=== PATIENT | female | born 2005 | race Caucasian/White ===

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

== ENCOUNTER 2023-10-28 08:17 | Emergency (ER) | payer MEDICAID, SELFPAY ==
[2023-10-28 09:20] VITALS: BP 117/70; PULSE 57; RESP 22; TEMP 36.9; O2SAT 100; BMI 34.2
--- NOTE | 2023-10-28 09:32 | ED_ITS ---
Discharge Plan Disposition Patient Disposition: Home, Self-Care Condition: Good Prescriptions Prescriptions: New ibuprofen 600 mg tablet 600 mg PO Q6HP PRN (Reason: Moderate Pain) Qty: 20 0RF No Action norgestimate-ethinyl estradiol [Sprintec (28)] 0.25-35 mg-mcg tablet 1 tab PO DAILY Qty: 84 1RF Referrals Follow up/Referrals: Kavita Herrmann PA [Primary Care Provider] - See instructions Activity Restrictions/Add. Instructions Additional Instructions/Restrictions: Wear wrist splint this may keep you from moving and turning of your wrist to help with pain Follow up with your Family Doctor as prescribed Take medication as prescribed Return if needed Clinical Impressions Clinical Impression: Carpal tunnel syndrome Qualifiers: Laterality: right Qualified Code(s): G56.01 - Carpal tunnel syndrome, right upper limb Stand Alone Forms Stand Alone Forms: Work/School Release Instructions Patient Instructions: Carpal Tunnel Syndrome, DI for Carpal Tunnel Syndrome, Ibuprofen Discharge ED Provider: Lauren Crow [facility] General Stated complaint: pain in both hands Mode of Arrival: Ambulatory Source of Information: Patient Limitations: No Limitations Time Seen by Provider: 10/28/23 09:32 Description of Symptoms (Recalled from Triage Doc. 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 States that she did not fall and did not do anything to hurt it Denies falling and denies known injury States she called to get into her PCP and has appointment next week but work needed something to get her moved from her dept until she sees her PCP Related Data Previous Rx's Medication Instructions Recorded norgestimate 0.25 mg-ethinyl 1 tab PO DAILY #84 tabs 07/13/23 estradiol 35 mcg tablet (Sprintec (28)) ibuprofen 600 mg tablet 600 mg PO Q6HP PRN Moderate Pain 10/28/23 #20 tabs Allergies Allergy/AdvReac Type Severity Reaction Status Date / Time poison isabel extract Allergy Verified 09/14/22 10:14 Worker's Comp Is this a Worker's Comp case?: No [facility] Disclaimer: The information contained in this section may have been updated after the patient was seen, as this information can be updated by other users. Social History Smoking Status: Never smoker alcohol intake: never substance use type: denies use current occupational status: student Travel in the last 8 weeks: None household members: family housing: house ROS Obtained: Yes All systems reviewed & no additional complaints except as documented and Yes Systems reviewed as appropriate & no additional complaints except as documented Constitutional Constitutional: Reports system reviewed and no additional complaints, except as documented and Reports as per HPI Cardiovascular Cardiovascular: Reports system reviewed and no additional complaints, except as documented and Reports as per HPI Respiratory Respiratory: Reports system reviewed and no additional complaints, except as documented and Reports as per HPI Gastrointestinal Gastrointestingal: Reports system reviewed and no additional complaints, except as documented and as per HPI Musculoskeletal Musculoskeletal: Reports system reviewed and no additional complaints, except as documented, Reports as per HPI and Reports other Comments: Pain in the palm of 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 Denied known injury Reports been going on for awhile just worse over last couple of days) Neurological Exam Neurological exam: Present alert, oriented X3 and normal gait Medical Decision Making Elder Inquiry Pt receiving controlled substance: No Elder was queried for this patient: No Vital Signs: 10/28/23 09:20 Temperature 98.5 F Temperature Source Oral Pulse Rate [Right Brachial] 57 L Respiratory Rate 22 Blood Pressure [Right Arm] 117/70 Blood Pressure Mean [Right Arm] 85 Blood Pressure Source [Right Arm] Automatic Cuff Blood Pressure Position [Right Arm] Sitting 02 Sat by Pulse Oximetry 100 Oxygen Delivery Method Room Air Medical Decision Narrative: Discussed xray patient declined suspect Carpal Tunnel due to symptoms and location of pain will place in velcro wrist splint prescribe Ibuprofen for pain and she will follow up with her PCP for further evaluation and testing if needed 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
[2023-10-28 09:54] VITALS: BP 117/70; PULSE 57; RESP 22; TEMP 36.9; O2SAT 100
== END 2023-10-28 10:02 | disposition home or self-care (01) ==
PROVIDERS: Emergency Provider Nurse Practitioner; PCP Physician Assistant
DX: M79.641 Pain in right hand (principal); G56.01 Carpal tunnel syndrome, right upper limb
CPT/HCPCS: 99212; 99214; G0463

== ENCOUNTER 2024-03-28 10:45 | Emergency (ER) | payer BC, MEDICAID, SELFPAY ==
[2024-03-28 10:50] VITALS: BP 124/80; PULSE 66; RESP 19; TEMP 36.7; O2SAT 100; BMI 35.2
--- NOTE | 2024-03-28 11:11 | EXP.UTC ---
Discharge Plan Disposition Patient Disposition: Home, Self-Care Condition: Good Prescriptions Prescriptions: New diphenhydramine HCl 25 mg capsule 25 mg PO Q6HP PRN (Reason: Itching) Qty: 30 0RF methylprednisolone 4 mg Tablets,Dose Pack 4 mg PO DIRECTED 6 Days Qty: 21 0RF Rx Instructions: Take 1 pack as directed for 6 days No Action norgestimate-ethinyl estradiol [Sprintec (28)] 0.25-35 mg-mcg tablet 1 tab PO DAILY Qty: 84 3RF Referrals Follow up/Referrals: Kavita Herrmann PA [Primary Care Provider] - See instructions Activity Restrictions/Add. Instructions Additional Instructions/Restrictions: Try to identify and avoid contact with the offending substance. Don't start the oral steroids until tomorrow. The diphenhydramine (benedryl) will make you drowsy, so don't drive or operate heavy machinery after taking it. Follow up with your regular doctor. GO TO THE ER FOR ANY WORSENING SYMPTOMS OR CONCERNS Clinical Impressions Clinical Impression: Allergic reaction Instructions Patient Instructions: DI for General Allergic Reactions, Diphenhydramine, Methylprednisolone Injection Discharge ED Provider: Duc Reece [facility] General Stated complaint: swollen and itchy face, left ear pain Mode of Arrival: Ambulatory Source of Information: Patient Limitations: No Limitations Time Seen by Provider: 03/28/24 11:09 Description of Symptoms (Recalled from Triage Doc. by RN): PATIENT C/O PUFFY EYES, ITCHY FACE, AND LEFT EAR PAIN THAT STARTED YESTERDAY HEENT Symptoms (Recalled from RN notes): Yes Resp Symptoms (Recalled from RN notes): No Skin Symptoms (Recalled from RN notes): Yes MS Symptoms (Recalled from RN notes): No Functional Status (Recalled from RN notes): WNL History of Present Illness Provider Complaint: She states that she woke up this morning with facial swelling and lip swelling. She denies any throat swelling or swelling inside mouth. Related Data Previous Rx's Medication Instructions Recorded norgestimate 0.25 mg-ethinyl 1 tab PO DAILY #84 tabs 03/13/24 estradiol 35 mcg tablet (Sprintec (28)) diphenhydramine HCl 25 mg capsule 25 mg PO Q6HP PRN Itching #30 caps 03/28/24 methylprednisolone 4 mg tablets in 4 mg PO DIRECTED 6 days #21 tabs 03/28/24 a dose pack Allergies Allergy/AdvReac Type Severity Reaction Status Date / Time poison isabel extract Allergy Verified 03/13/24 13:09 Worker's Comp Is this a Worker's Comp case?: No [facility] Disclaimer: The information contained in this section may have been updated after the patient was seen, as this information can be updated by other users. Medical History (Updated 03/28/24 @ 11:42 by Duc Reece APRN) Carpal tunnel syndrome Surgical History (Updated 03/13/24 @ 13:09 by PAPA Kuo) No significant past surgical history Family History Other No significant family history Social History Smoking Status: Never smoker alcohol intake: never substance use type: denies use current occupational status: student Travel in the last 8 weeks: None household members: family housing: house ROS Obtained: Yes All systems reviewed & no additional complaints except as documented Constitutional Constitutional: Denies chills and Denies fever(s) Eyes Eyes: Denies eye discharge ENT Ears, Nose, Mouth, and Throat: Denies dizziness, Denies otalgia and Denies sore throat Cardiovascular Cardiovascular: Denies chest pain Respiratory Respiratory: Denies shortness of breath, Denies chest congestion, Denies cough, Denies stridor and Denies wheezing Gastrointestinal Gastrointestingal: Denies nausea or vomiting Musculoskeletal Musculoskeletal: Reports system reviewed and no additional complaints, except as documented and Denies arthralgias Integumentary/Breasts Skin/Breast: Reports as per HPI Neurologic Neurologic: Denies dizziness and Denies paresthesias Allergic/Immunologic Allergic/Immunologic: Denies wheezing Physical Exam General General appearance: alert and in no apparent distress Head Head exam: atraumatic, normocephalic and normal inspection Eye Eye exam: Present normal appearance, PERRL and EOMI ENT ENT exam: Present normal exam, normal oropharynx, mucous membranes moist, TM's normal bilaterally and normal external ear exam Neck Neck exam: Present normal inspection, full ROM and trachea midline; Absent meningismus or lymphadenopathy Chest Chest inspection: Present normal inspection and symmetric chest wall rise; Absent tenderness Respiratory Respiratory exam: Present normal lung sounds bilaterally; Absent respiratory distress Cardiovascular Cardiovascular exam: Present regular rate and normal rhythm; Absent JVD Abdominal Exam Abdominal exam: Present soft and normal bowel sounds; Absent distention, tenderness or guarding Extremities Exam Extremities exam: Present normal inspection, full ROM and normal capillary refill; Absent calf tenderness Back Exam Back exam: Present normal inspection; Absent tenderness Neurological Exam Neurological exam: Present alert and oriented X3 Psychiatric Psychiatric exam: Present normal affect and normal mood Skin Skin exam: Present warm, dry, intact and normal color Lymphatic Lymphatic Findings: no adenopathy Medical Decision Making Medical Records Medical records reviewed: No I reviewed the patient's medical records. Elder Inquiry Pt receiving controlled substance: No Vital Signs: 03/28/24 10:50 Temperature 98.0 F Temperature Source Oral Pulse Rate [Left Brachial] 66 Respiratory Rate 19 Blood Pressure [Left Arm] 124/80 Blood Pressure Mean [Left Arm] 94 Blood Pressure Source [Left Arm] Automatic Cuff Blood Pressure Position [Left Arm] Sitting 02 Sat by Pulse Oximetry 100 Oxygen Delivery Method Room Air
[2024-03-28] MEDS: METHYLPREDNISOLONE SOD SUCC 125MG VIAL 125 MG IM (11:22)
[2024-03-28 11:35] VITALS: BP 124/80; PULSE 66; RESP 19; TEMP 36.7; O2SAT 100
== END 2024-03-28 11:44 | disposition home or self-care (01) ==
PROVIDERS: Emergency Provider Nurse Practitioner Family; PCP Physician Assistant
DX: T78.40XA Allergy, unspecified, initial encounter (principal)
CPT/HCPCS: 96372; 99212; 99214; G0463; J2919

== ENCOUNTER 2024-10-09 19:53 | Emergency (ER) | payer BC, MEDICAID, SELFPAY ==
[2024-10-09] VITALS (11 sets, daily range): BP systolic 114–135; BP diastolic 60–88; PULSE 57–74; RESP 14–16; TEMP 36.7–36.8; O2SAT 93–100; BMI 30.7
--- NOTE | 2024-10-09 20:23 | CT_ITS ---
PROCEDURE INFORMATION: Exam: CT Abdomen And Pelvis With Contrast Exam date and time: 10/09/2024 10:07 PM Age: 19 years old Clinical indication: Abdominal pain; Additional info: Mid abdominal pain TECHNIQUE: Imaging protocol: Computed tomography of the abdomen and pelvis with contrast. Radiation optimization: All CT scans at this facility use at least one of these dose optimization techniques: automated exposure control; mA and/or kV adjustment per patient size (includes targeted exams where dose is matched to clinical indication); or iterative reconstruction. Contrast material: ISOVUE; Contrast volume: 75 ml; Contrast route: IV; COMPARISON: CT ABDOMEN PELVIS WO CON 04/27/2019 12:01 PM FINDINGS: Liver: Heterogeneous liver with mild periportal edema. No mass. Gallbladder and biliary ducts: Normal. No calcified stones. No ductal dilation. Pancreas: Normal. No ductal dilation. Spleen: Normal. No splenomegaly. Adrenal glands: Normal. No mass. Kidneys and ureters: Normal. No hydronephrosis. Stomach and bowel: Unremarkable. No obstruction. No mucosal thickening. Appendix: No evidence of appendicitis. Intraperitoneal space: Unremarkable. No free air. No significant fluid collection. Vasculature: Unremarkable. No abdominal aortic aneurysm. Lymph nodes: Reactive retroperitoneal lymph nodes without lymphadenopathy. Urinary bladder: Unremarkable as visualized. Reproductive: Unremarkable as visualized. Bones/joints: Unremarkable. No acute fracture. Soft tissues: Unremarkable. IMPRESSION: Heterogeneous liver with periportal edema. Although nonspecific, can be seen with hepatitis and/or hepatic congestion among leading differential considerations.
--- NOTE | 2024-10-09 20:24 | ED_ITS ---
Discharge Plan Disposition Patient Disposition: Home, Self-Care Prescriptions Prescriptions: New ondansetron 4 mg tablet,disintegrating 4 mg PO Q6H PRN (Reason: nausea and vomiting) 5 Days Qty: 20 0RF Referrals Follow up/Referrals: Kavita Herrmann PA [Primary Care Provider] - See instructions Jama Pepe II, MD [Staff Physician] - See instructions Activity Restrictions/Add. Instructions Additional Instructions/Restrictions: No definitive cause of your abdominal pain identified today. You had some mild elevation in your transaminases and your CT scan did show some findings concerning for possible mild inflammation of the liver itself. Therefore recommend that you follow-up with our raised printer Dr. Pepe to ensure resolution of your symptoms. Please return with any significant worsening. Clinical Impressions Clinical Impression: Abdominal pain, Abnormal transaminases Instructions Patient Instructions: DI for Acute Abdominal Pain Print Language Print Language: Portuguese Discharge ED Provider: Li Mao General Adult HPI General Chief complaint: Abdominal Pain Stated complaint: Stomach pain Time Seen by Provider: 10/09/24 20:16 Mode of Arrival: Ambulatory Source of Information: Patient Limitations: No Limitations Description of Symptoms (Recalled from ER Triage Doc. by RN): Pt reports BUQ abd pain that comes and goes and radiates into her flanks. She endorses dizziness, lightheadedness, and chills during these episodes. Pt denies changes in bowels, no urinary issues. [facility] was beginning of Sep. Denies N/V or fevers. History of Present Illness HPI narrative: Patient is a 19-year-old female presents today with epigastric and periumbilical abdominal pain. Started about an hour prior to arrival. States it has been coming and going in terms of its intensity but has not completely alleviated at any point. She has not had any postprandial abdominal pain no history of cholecystectomy or other abdominal surgeries in the past denies any nausea and vomiting. Denies any changes in urination bowel movements or vaginal bleeding etc. Related Data Previous Rx's ?Medication ?Instructions ?Recorded ondansetron 4 mg disintegrating 4 mg PO Q6H PRN nausea and 10/09/24 tablet vomiting 5 days #20 tabs Allergies Allergy/AdvReac Type Severity Reaction Status Date / Time poison isabel extract Allergy Verified 09/25/24 11:04 [facility] Disclaimer: The information contained in this section may have been updated after the patient was seen, as this information can be updated by other users. Medical History Carpal tunnel syndrome Surgical History No significant past surgical history Family History Other No significant family history Social History Smoking Status: Never smoker alcohol intake: never substance use type: denies use current occupational status: student Travel in the last 8 weeks: None household members: family housing: house Have you lived/traveled outside [place] in past 30 days?: No Contact w/someone who lives/traveled outside [place] past 30 days?: No Exposure to someone with infectious disease in past 14 days?: No Do you have a fever (greater than 100.4 F or 38 C)?: No Have you tested positive for COVID-19: No Exposed to someone with COVID-19 in past 14 days?: No Do you have a sore throat?: No Do you have a cough?: No Do you have any weakness?: No Do you have any diarrhea?: No Are you experiencing any unusual bleeding?: No Do you have any muscle aches/pain?: No Do you have any abdominal pain?: Yes Are you experiencing loss of taste or smell?: No Other Medical History Have you received the Flu Vaccine for this season: No Have you received the Pneumonia Vaccine: No ROS Obtained: Yes All systems reviewed & no additional complaints except as documented Physical Exam General General appearance: alert Respiratory Respiratory exam: Present normal lung sounds bilaterally Cardiovascular Cardiovascular exam: Present regular rate Abdominal Exam Abdominal exam: Present tenderness (Patient tender mid epigastric region and periumbilically no rebound or guarding) Neurological Exam Neurological exam: Present alert and oriented X3 Medical Decision Making Medical Records Screening: Per USPSTF and CDC recommendations, given the prevalence of disease in our region, it is our hospital?s policy to screen for HIV and viral Hepatitis for all patients aged 18 and over and those with ongoing risk factors. Elder Inquiry Pt receiving controlled substance: No Vital Signs: 10/09/24 19:54 10/09/24 21:00 10/09/24 21:15 Temperature 98.3 F Temperature Source Oral Pulse Rate 72 70 Pulse Rate [Right Radial] 73 Respiratory Rate 14 Blood Pressure 135/80 114/69 Blood Pressure [Right Arm] 120/77 Blood Pressure Mean [Right Arm] 91 Blood Pressure Source [Right Arm] Automatic Cuff Blood Pressure Position [Right Arm] Sitting 02 Sat by Pulse Oximetry 100 100 93 L Oxygen Delivery Method Room Air 10/09/24 21:32 10/09/24 21:45 10/09/24 22:00 Temperature Temperature Source Pulse Rate 63 69 67 Pulse Rate [Right Radial] Respiratory Rate Blood Pressure 118/60 121/68 124/73 Blood Pressure [Right Arm] Blood Pressure Mean [Right Arm] Blood Pressure Source [Right Arm] Blood Pressure Position [Right Arm] 02 Sat by Pulse Oximetry 99 99 99 Oxygen Delivery Method Room Air Room Air Room Air 10/09/24 22:17 10/09/24 22:30 10/09/24 22:45 Temperature Temperature Source Pulse Rate 74 67 63 Pulse Rate [Right Radial] Respiratory Rate Blood Pressure 120/74 124/88 133/82 Blood Pressure [Right Arm] Blood Pressure Mean [Right Arm] Blood Pressure Source [Right Arm] Blood Pressure Position [Right Arm] 02 Sat by Pulse Oximetry 100 99 98 Oxygen Delivery Method Room Air Room Air Room Air 10/09/24 23:00 Temperature Temperature Source Pulse Rate 64 Pulse Rate [Right Radial] Respiratory Rate Blood Pressure 128/81 Blood Pressure [Right Arm] Blood Pressure Mean [Right Arm] Blood Pressure Source [Right Arm] Blood Pressure Position [Right Arm] 02 Sat by Pulse Oximetry 97 Oxygen Delivery Method Room Air Lab Data Lab results reviewed: Yes I reviewed the patient's lab results. Lab Results 10/09/24 20:53: WBC 16.5 H, RBC 5.05, Hgb 14.0, Hct 42.3, MCV 83.8, MCH 27.7, MCHC 33.1, RDW 13.0, Plt Count 216, MPV 11.4 H, Neut % (Auto) 84.6 H, Lymph % (Auto) 8.6 L, [place] % (Auto) 5.6, Eos % (Auto) 0.5, Baso % (Auto) 0.3, Neut # (Auto) 13.9 H, Lymph # (Auto) 1.4, [place] # (Auto) 0.9, Eos # (Auto) 0.1, Baso # (Auto) 0.1, Total Counted 100, Neutrophils % (Manual) 85 H, Lymphocytes % (Manual) 7 L, Monocytes % (Manual) 8, Platelet Estimate Normal, RBC Morphology Normal, Sodium 139, Potassium 3.4 L, Chloride 103, Carbon Dioxide 24, Anion Gap 15.4 H, BUN 15, Creatinine 0.70, Estimated Creat Clear 173, Estimated GFR 106, Est GFR ( Amer) 128, Glucose 118 H, Calcium 9.7, Total Bilirubin 0.8, AST 127 H, ALT 81 H, Alkaline Phosphatase 104, Total Protein 7.8, Albumin 5.3 H, Globulin 2.5, Albumin/Globulin Ratio 2.1 H, Lipase 63, Serum HCG, Qual Negative, HCV Ab CARLOS w/Rflx PCR Qn Negative, HIV Ag/Ab Combo Qual Negative 10/09/24 21:27: Urine Color [place], Urine Appearance Sl cloudy, Urine pH 6.0, Ur Specific [place] >= 1.030, Urine Protein Negative, Urine Glucose (UA) Negative, Urine Ketones Negative, Urine Blood Negative, Urine Nitrate Negative, Urine Bilirubin Negative, Urine Urobilinogen 0.2, Ur Leukocyte Esterase Negative, Urine RBC 3-5, Urine WBC 3-5, Ur Squamous Epith Cells 3-5, Urine Bacteria 1+, Urine Mucus 1+, Urine HCG, Qual Negative 10/09/24 20:53 10/09/24 20:53 Orders (Tests/Meds): ED MEDICATIONS Generic Name Dose Route Start Last Admin Trade Name Freq PRN Reason Stop Dose Admin Sodium Chloride 10 ml 10/09/24 22:10 10/09/24 22:10 Sodium Chloride 0.9% 10ml Syr (Rad Only) IV 11/08/24 22:09 10 ml NEEDED PRN Administration Maintain IV Site Discontinued Medications Generic Name Dose Route Start Last Admin Trade Name Freq PRN Reason Stop Dose Admin Lactated Ringer's 1,000 mls @ 999 mls/hr 10/09/24 20:30 10/09/24 21:07 Lactated Ringer's 1000 Ml Bag IV 10/09/24 21:30 999 mls/hr .Q1H1M FARHAT Administration Iopamidol 75 ml 10/09/24 22:10 10/09/24 22:10 Iopamidol-370 (76%);100ml Bottle IV 10/09/24 22:11 75 ml ONCE ONE Administration Morphine Sulfate 4 mg 10/09/24 20:23 10/09/24 21:07 Morphine 4mg/Ml Syringe IV 10/09/24 20:24 4 mg ONCE ONE Administration Ondansetron HCl 4 mg 10/09/24 20:23 10/09/24 21:07 Ondansetron 4mg/2ml Vial IV 10/09/24 20:24 4 mg ONCE ONE Administration ORDERS Category Date Time Status CT abdomen pelvis w con Stat Cat Scan 10/09/24 20:23 Completed CBC w/Auto Diff [Complete Blood Count Auto Diff] Stat Lab 10/09/24 20:53 Completed CMP [Comprehensive Metabolic Panel] Stat Lab 10/09/24 20:53 Completed HCG Qualitative, Serum Stat Lab 10/09/24 20:53 Completed HIV Combo Stat Lab 10/09/24 20:53 Completed Hepatitis C Ab Qual. W/ RFX Stat Lab 10/09/24 20:53 Completed Lipase Stat Lab 10/09/24 20:53 Completed Urinalysis and Microscopic Stat Lab 10/09/24 21:27 Completed Urine , HCG Qual. Stat Lab 10/09/24 21:27 Completed Medical Decision Narrative: 19-year-old female with above history and physical. Her abdomen is soft but she is significantly tender in the mid periumbilical and epigastric region. Therefore we will get a CT scan to evaluate surgical pathology such as bowel obstruction etc. IV fluids pain medicine nausea medicine have been administered basic blood work have been initiated and will reassess. Reassessment 11:25 PM patient feeling much better serial abdominal exams are benign. CT scan was performed which I personally interpreted there is some questionable edema around the liver itself concerning for possible inflammatory response but no definitive abnormality. Specifically no evidence of epigastric or mid periumbilical abnormalities explain the patient's pain. Patient did have mild elevations in her transaminases. No significant right upper quadrant tenderness. This is nonspecific. She has been advised to follow-up closely outpatient with gastroenterology and return with any significant worsening of her symptoms. Critical Care Critical Care Time Critical Care Time: No
[2024-10-09] MEDS: MORPHINE 4MG/ML SYRINGE 4 MG IV (21:07)
[2024-10-09] MEDS: ONDANSETRON 4MG/2ML VIAL 4 MG IV (21:07)
[2024-10-09] MEDS: LACTATED RINGERS 1000ML 1,000 ML 999 ML IV (21:07)
[2024-10-09 21:11] LABS: Albumin Level 5.3 g/dl (3.5-5.0); Chloride 103 mmol/L (98-107)
[2024-10-09 21:12] LABS: Potassium 3.4 mmoL/L (3.5-5.1); Sodium 139 mmol/L (136-145)
[2024-10-09 21:13] LABS: Basophils # 0.1 K/mm3 (0-0.2); Basophils % 0.3 % (0.1-2.0); Eosinophils # 0.1 K/mm3 (0.0-0.4); Eosinophils % 0.5 % (0.1-12.0); Hematocrit 42.3 % (37.0-47.0); Lymphocytes # 1.4 K/mm3 (0.7-4.5); Lymphocytes % 8.6 % (10-50); Mean Corpuscular HGB Conc 33.1 g/dL (31.8-35.4); Mean Corpuscular Hemoglobin 27.7 pg (27.0-31.2); Mean Corpuscular Volume 83.8 fl (81-99); Mean Platelet Volume 11.4 fl (7.4-10.4); Monocytes # 0.9 K/mm3 (0.1-1.0); Monocytes % 5.6 % (1.7-9.3); Neutrophils # 13.9 K/mm3 (1.8-7.8); Neutrophils % 84.6 % (37.0-80.0); Platelet Count 216 K/mm3 (142-424); Red Blood Count 5.05 M/mm3 (4.20-5.40); White Blood Count 16.5 K/mm3 (4.8-10.8)
[2024-10-09 21:14] LABS: Alanine Aminotransferase 81 U/L (12-78); Alkaline Phosphatase 104 U/L (38-126); Anion Gap 15.4 mEq/L (5-15); Aspartate Amino Transferase 127 U/L (14-36); Bilirubin,Total 0.8 mg/dl (0.2-1.3); Blood Urea Nitrogen 15 mg/dl (7-17); Carbon Dioxide 24 mmol/L (22.0-30.0); Creatinine Clearance Estimated 173 mL/min (50-200); Estimated Glomerular Filt Rate 106 ml/min (>60); GFR (African American) 128 ML/MIN (>60)
[2024-10-09 21:15] LABS: Albumin/Globulin Ratio 2.1 (1.1-1.8); Calcium 9.7 mg/dl (8.4-10.2); Globulin 2.5 g/dL (1.3-3.2); Glucose 118 mg/dl (74-100); Lipase 63 U/L (23-300); Total Protein,Serum 7.8 g/dl (6.3-8.2)
[2024-10-09 21:16] LABS: MANUAL DIFFERENTIAL MANUAL DIFFERENTIAL (MANUAL DIFF)
[2024-10-09 21:30] LABS: Microscopic, Urine URINE MICROSCOPIC (MICROSCOPIC)
[2024-10-09 21:47] LABS: HCG Qualitative, Serum Negative (Negative)
[2024-10-09 21:54] LABS: Appearance,Urine SL CLOUDY (Clear); Blood, Urine Negative (Negative); Color,Urine ORANGE (Yellow); Glucose,Urine (UA) Negative (Negative); Ketones,Urine Negative (Negative); Leukocyte Esterase,Urine Negative (Negative); Nitrate,Urine Negative (Negative); Protein,Urine Negative (Negative); Specific Gravity, Urine >= 1.030 (1.005-1.030); Urobilinogen,Urine 0.2 EU/dl (0.2)
[2024-10-09 22:06] LABS: Urine Pregnancy, HCG Qual. Negative (Negative)
[2024-10-09] MEDS: SODIUM CHLORIDE 0.9% 10ML SYR (RAD ONLY) 10 ML IV (22:10)
[2024-10-09] MEDS: IOPAMIDOL-370 (76%);100ML BOTTLE 75 ML IV (22:10)
[2024-10-09 22:25] LABS: HIV Combo NEGATIVE (Negative)
[2024-10-09 22:29] LABS: Lymphocytes % 7 % (10-50); Monocytes % 8 % (2-9); Neutrophils % 85 % (42-76); Total Cells Counted 100
[2024-10-09 22:30] LABS: RBC Morphology Normal
[2024-10-09 22:31] LABS: Hepatitis C Ab Qual. W/ RFX NEGATIVE (Negative); Platelet Estimate Normal
[2024-10-09 22:40] LABS: Bilirubin,Urine Negative (Negative)
[2024-10-09 22:52] LABS: Bacteria,Urine 1+ /lpf; Mucus,Urine 1+ /lpf
== END 2024-10-09 23:35 | disposition home or self-care (01) ==
PROVIDERS: Emergency Provider Student in an Organized Health Care Education/Training Program; PCP Physician Assistant
DX: R74.8 Abnormal levels of other serum enzymes (principal); R10.11 Right upper quadrant pain; R10.12 Left upper quadrant pain; R42 Dizziness and giddiness; R68.83 Chills (without fever)
CPT/HCPCS: 74177; 80053; 81001; 81025; 83690; 84703; 85007; 85025; 85027; 86803; 87389; 96361; 96374; 96375; 99285; J2270; J2405; J7120; Q9967